=== PATIENT | female | born 1955 | race Caucasian/White ===

== ENCOUNTER 2019-06-21 08:18 | Observation (INO) | payer MEDICARE, MEDICAID ==
[~2019-06-21] VITALS: Ht 170.2 cm; Wt 74.0 kg
[2019-06-21] MEDS ORDERED: LACTATED RINGERS 1,000 ML IV SCH (09:33)
[2019-06-21] MEDS ORDERED: CITA40TA5 PO (09:39)
[2019-06-21] MEDS ORDERED: SIMV20TA3 PO (09:39)
[2019-06-21] MEDS ORDERED: LEVE750T8 PO (09:39)
[2019-06-21] MEDS ORDERED: SITA1TAB PO (09:39)
[2019-06-21] MEDS ORDERED: OMEP40CA42 PO (09:39)
[2019-06-21] MEDS ORDERED: KETO5DRO70 OP (09:39)
[2019-06-21] MEDS ORDERED: MULT-717 PO (09:39)
[2019-06-21 09:44] VITALS: BP 107/64
[2019-06-21] MEDS ORDERED: SUCCINYLCHOLINE 20 MG/ML, 10ML ONE (10:49)
[2019-06-21] MEDS ORDERED: FENTANYL PF 100 MCG/2ML ONE ×2 (16:22→19:00)
[2019-06-21] MEDS ORDERED: KETOROLAC 30 MG/1 ML ONE (17:33)
[2019-06-21] MEDS ORDERED: SODIUM CHLORIDE 0.9% PF 10ML ONE (17:34)
[2019-06-21] MEDS ORDERED: PROPOFOL 10 MG/ML, 20ML ONE (17:34)
[2019-06-21] MEDS ORDERED: DEXAMETHASONE 4 MG/ML, 1ML ONE ×2 (17:34)
[2019-06-21] MEDS ORDERED: CEFAZOLIN 1,000 MG ONE ×2 (17:34)
[2019-06-21] MEDS ORDERED: LIDOCAINE-MPF 2% ,5ML ONE (17:34)
[2019-06-21] MEDS ORDERED: OXYcodone 5 MG/5 ML ORAL.SOL UDC PO PRN ×2 (18:00→23:30)
[2019-06-21] MEDS ORDERED: EPHEDRINE 50 MG/ML, 1ML IVPush PRN (18:00)
[2019-06-21] MEDS ORDERED: HYDROmorphone 2 MG/ML, 1ML IVPush PRN ×2 (18:00→23:30)
[2019-06-21] MEDS ORDERED: ONDANSETRON 2MG/ML, 2ML IV PRN ×2 (18:00→23:30)
[2019-06-21] MEDS ORDERED: ACETAMINOPHEN 325 MG TABLET PO PRN (18:00)
[2019-06-21] MEDS ORDERED: hydrALAzine 20 MG/ML, 1ML IV PRN (18:00)
[2019-06-21] MEDS ORDERED: PROMETHAZINE 25 MG/ML, 1ML IV PRN (18:00)
[2019-06-21] MEDS ORDERED: FENTANYL PF 100 MCG/2ML IV PRN (18:00)
[2019-06-21] MEDS ORDERED: LABETALOL 5MG/ML, 20ML IV PRN (18:00)
[2019-06-21] MEDS ORDERED: MEPERIDINE/PF 25MG/ML,1ML IVPush PRN (18:00)
[2019-06-21] MEDS ORDERED: ESMOLOL 100 MG/10 ML ONE (19:31)
[2019-06-21 21:45] VITALS: BP 103/65
[2019-06-21] MEDS ORDERED: SENNA/DOCUSATE TABLET PO PRN (23:30)
[2019-06-21] MEDS ORDERED: POTASSIUM CHLORIDE 40 MEQ in SODIUM CHLORIDE 0.9% 1,000 ML IV SCH (23:30)
[2019-06-21] MEDS ORDERED: PROMETHAZINE 25 MG/ML, 1ML IM PRN (23:30)
[2019-06-22] MEDS ORDERED: LEVETIRACETAM 100 MG/ML ORAL SOL PO ONE (00:30)
[2019-06-22] MEDS: CEFAZOLIN PMX 2GM/50ML 50 ML IVPB SCH ×2 (00:38→08:07)
[2019-06-22] MEDS: HYDROcodone/APAP 5/325 TABLET PO PRN ×2 (00:39→08:07)
[2019-06-22 02:07] VITALS: BP 99/64
[2019-06-22] MEDS ORDERED: OMEPRAZOLE 20 MG CAPSULE.DR PO SCH (06:00)
[2019-06-22] MEDS ORDERED: ENOXAPARIN 40 MG/0.4 ML SQ SCH (06:00)
[2019-06-22] MEDS ORDERED: metFORMIN 500 MG TABLET PO SCH (08:00)
[2019-06-22] MEDS ORDERED: ASPI-650 PO (08:39)
[2019-06-22] MEDS ORDERED: MULTIVITAMIN 1 TABLET PO SCH (09:00)
[2019-06-22] MEDS ORDERED: ASPIRIN 325 MG TABLET PO SCH (09:00)
[2019-06-22] MEDS ORDERED: DOCUSATE 100 MG CAPSULE PO SCH (09:00)
[2019-06-22] MEDS ORDERED: LINAGLIPTIN 5 MG TAB PO SCH (09:00)
[2019-06-22] MEDS ORDERED: LEVETIRACETAM 100 MG/ML ORAL SOL PO SCH (09:00)
[2019-06-22] MEDS ORDERED: CITALOPRAM 20 MG TABLET PO SCH (09:00)
[2019-06-22] MEDS ORDERED: KETOTIFEN EYE DROPS HOMEOPHTH SCH (09:00)
[2019-06-22 09:10] VITALS: BP 99/61
[2019-06-22] MEDS ORDERED: HYDR50CA PO (09:39)
[2019-06-22] MEDS ORDERED: GABA300C10 PO (09:40)
[2019-06-22] MEDS ORDERED: HYDR-3240 PO (09:41)
[2019-06-22] MEDS ORDERED: SIMVASTATIN 20 MG TABLET PO SCH (21:00)
== END 2019-06-22 10:05 | disposition home or self-care (01) ==
LOC: OUT 08:18 → 4NE 21:53 → OUT 23:15 → DCLOUNGE 06-22 09:35
PROVIDERS: ADMIT Orthopaedic Surgery; ATTEND Orthopaedic Surgery
DX: T84.59XA Infection and inflammatory reaction due to other internal joint prosthesis, initial encounter (principal); M00.9 Pyogenic arthritis, unspecified; M86.9 Osteomyelitis, unspecified; E11.9 Type 2 diabetes mellitus without complications; I10 Essential (primary) hypertension; E78.5 Hyperlipidemia, unspecified; K21.9 Gastro-esophageal reflux disease without esophagitis; G40.909 Epilepsy, unspecified, not intractable, without status epilepticus; M19.90 Unspecified osteoarthritis, unspecified site; Z85.038 Personal history of other malignant neoplasm of large intestine
CPT/HCPCS: 11983; 28725; 73610; 76000; 82962; 87070; 87075; 87176; 87205; 88305; 93005; 96365; 96366; 96372; C1713; C1762; C1769; G0378; J0330; J0690; J1100; J1650; J1885; J2704; J3010; J3480; J3490; J7030; J7120